=== PATIENT | male | born 1990 | race Caucasian/White ===

== ENCOUNTER 2021-05-09 13:05 | Emergency (ER) | payer BC, SELFPAY ==
--- NOTE | ~2021-05-09 | XR_ITS ---
EXAMINATION: XR chest 2V DATE: 05/09/2021 14:08 INDICATION: Chronic cough TECHNIQUE: PA and lateral views of the chest were obtained. COMPARISON: None FINDINGS: The lungs are clear with no focal airspace opacities, pulmonary edema, pleural effusion or pneumothor ax. The cardiomediastinal silhouette is normal. Visualized bones and soft tissues are unremarkable. IMPRESSION: 1. No acute cardiopulmonary disease. Reviewed, dictated and finalized at location A. [facility]
[2021-05-09 13:29] VITALS: BP 137/81; PULSE 100; RESP 20; TEMP 37.2; O2SAT 97
--- NOTE | 2021-05-09 15:13 | ED.URI ---
HPI - URI/Sore Throat General Chief Complaint: Upper Respiratory Infection Stated Complaint: Chest Congestion/Cough Time Seen by Provider: 05/09/21 15:00 Source: patient, RN notes reviewed and old records reviewed Mode of arrival: ambulatory Limitations: no limitations History of Present Illness HPI Narrative: 30-year-old male who presents to [facility] with complaints of persistent cough, temporal headache which is dull throbbing, some dyspnea and wheezing at times for 2-3 weeks. Patient states that he had COVID 9 months ago and has not had COVID or flu immunizations. Patient states that he has not had any any acute fevers, chills or sweats or any body aches. Patient states that he has been expectorating some light yellowish green drainage.Patient reports that he has been taking Mucinex and Claritin for his symptom along with daily nasal spray. Patient states that he is suppose to see specialist in regards to persistent cough which has been for several months. MD elicited complaint: cough and other (headache) Related Data Home Medications Medication Instructions Recorded Confirmed azelastine 2 spray INTRANASAL DAILY 05/09/21 05/09/21 omeprazole 20 mg PO DAILY 05/09/21 05/09/21 Allergies Allergy/AdvReac Type Severity Reaction Status Date / Time No Known Allergies Allergy Verified 05/09/21 13:48 Review of Systems Review of Systems: CONSTITUTIONAL: Denies fever, chills, or sweats. EYES: Denies visual changes, redness, or discharge. ENT: Occasional clear rhinorrhea, no acute nasal congestion, sore throat, or otalgia. CARDIOVASCULAR: Denies chest pain, palpitations, or edema. RESPIRATORY: Positive for persistent cough or dyspnea and some wheezing.. GASTROINTESTINAL: Denies abdominal pain, nausea, vomiting, or diarrhea. GENITOURINARY: Denies dysuria or hematuria. SKIN: Denies rash or itching. MUSCULOSKELETAL: Denies back pain, joint pain, or myalgia. NEUROLOGIC: Positive for temporal headache, no numbness, or weakness.states fatigue PSYCHIATRIC: Denies anxiety or depression. All systems reviewed & are unremarkable except as noted in HPI and below PMFSH Past Medical History Medical History (Updated 05/10/21 @ 23:26 by Yessica Nolasco NP) Chronic cough COVID-19 9 months ago GERD (gastroesophageal reflux disease) Surgical History Surgical History (Updated 05/10/21 @ 23:10 by Yessica Nolasco NP) No history of previous surgery Social History Social History (Updated 05/10/21 @ 23:10 by Yessica Nolasco NP) Smoking status: Never smoker Alcohol intake: current Alcohol use details: social Substance use: never Living arrangements: with family Gender identity (if verbalized by the patient): Male Comments At time of signature, agree with nursing past medical, surgical, social and family history. There is no relevant family history pertinent to the presenting complaint Exam Narrative: GENERAL: Well-appearing, well-nourished, and in no acute distress. HEAD: Normocephalic, atraumatic. EYES: PERRLA and EOMI. ENT: Nares with mild redness, scant clear rhinorrhea no epistaxis. Mucous membranes moist.TM's normal with good light reflex, throat pink with no lesions exudates or tonsil enlargement NECK: Supple.no lymphadenopathy CHEST: Scattered expiratory wheezes on auscultation. No respiratory distress.No acute dyspnea noted, no accessory muscle use, SAO2 97% on room air HEART: Regular rate and rhythm. No murmur heard. Normal peripheral pulses. ABDOMEN: Soft, nontender, nondistended, normal active bowel sounds. EXTREMITIES: Normal range of motion. No edema. SKIN: Warm, dry, no rash. NEURO: No focal deficits. Alert and oriented x3. Course Vital Signs Vital signs: Vital Signs Temperature 37.2 C 05/09/21 13:29 Pulse Rate 100 05/09/21 13:29 Respiratory Rate 20 05/09/21 13:29 Blood Pressure 137/81 05/09/21 13:29 Pulse Oximetry 97 05/09/21 13:29 Temperature 37.2 C 05/09/21 13:29
== END 2021-05-09 15:27 | disposition home or self-care (01) ==
PROVIDERS: Emergency Provider Registered Nurse
DX: J40 Bronchitis, not specified as acute or chronic (principal)
CPT/HCPCS: 71046; 99213; G0463